=== PATIENT | female | born 1955 | race American Indian/Alaskan Native ===

== ENCOUNTER 2017-01-14 10:37 | Outpatient (CLI) | payer MEDICARE ==
--- NOTE | 2017-01-14 12:00 | XRay Report ---
RIGHT FOREARM: History: Right forearm pain, nodule. No relevant comparison. Fracture lines are evident through the midshaft of the right ulna. The fracture lines are well corticated. This has the appearance of a chronic ununited fracture in my opinion. The radius is within normal limits. The soft tissues are unremarkable. IMPRESSION: Probable chronic, ununited fracture of the ulnar shaft, correlate with history.
--- NOTE | 2017-01-14 13:15 | XRay Report ---
Cervical spine series: Neuralgia. Routine views demonstrate bony perforation at the C5-6 level with narrowing of the interspace. The C6-7 level is not well-visualized in the lateral projection but appears grossly preserved on the additional views. The remaining interspaces are unremarkable. The vertebral height is maintained at all levels and there is normal alignment. There is mild straightening of the cervical spine. The foramina appear to be patent bilaterally at all levels with only minimal compromise at C5-6. The bones appear adequately mineralized for stated age. Impressions: Degenerative bone and disc changes at C5-6.
== END 2017-01-14 10:38 | disposition home or self-care (01) ==
LOC: XRAY 10:37
PROVIDERS: ATTEND Family Medicine
DX: M47.892 Other spondylosis, cervical region (principal); M79.631 Pain in right forearm; I10 Essential (primary) hypertension; E78.00 Pure hypercholesterolemia, unspecified; E11.9 Type 2 diabetes mellitus without complications; E78.5 Hyperlipidemia, unspecified; D64.9 Anemia, unspecified
CPT/HCPCS: 72050

== ENCOUNTER 2018-11-28 10:54 | Emergency (ER) | payer MEDICARE ==
--- NOTE | 2018-11-28 11:17 | Emergency Department Report ---
Blank Doc - Documentation Documentation: This is a 63-year-old female that presents with blisters to legs and is concer carla about infection. This initial assessment diagnostic orders/clinical plan/treatment(s) is/are subject to change based on patient's health status, clinical progression and re- assessment by fellow clinical providers in the ED. Further treatment and workup at subsequent clinical providers discretion. Patient/guardians urged not to elope from ED s their condition may be serious if not clinically assessed and managed. Initial orders include: 1-Patient sent to [facility] for further evaluation and treatment 2-labs
[2018-11-28 11:18] VITALS: BP 127/66
[2018-11-28 12:07] LABS: Basophils # (Auto) 0.1 K/mm3 (0.0-0.1); Basophils % (Auto) 1.6 % (0.0-1.8); Eosinophils # (Auto) 0.4 K/mm3 (0.0-0.4); Eosinophils % (Auto) 5.3 % (0.0-4.3); Hematocrit 36.1 % (30.3-42.9); Hemoglobin 11.4 gm/dl (10.1-14.3); Lymphocytes # (Auto) 2.3 K/mm3 (1.2-5.4); Lymphocytes % (Auto) 33.8 % (13.4-35.0); Mean Corpuscular HGB Conc 32 % (30-34); Mean Corpuscular Volume 89 fl (79-97); Monocytes # (Auto) 0.6 K/mm3 (0.0-0.8); Platelet Count 287 K/mm3 (140-440); Red Blood Count 4.06 M/mm3 (3.65-5.03); Red Cell Distribution Width 15.9 % (13.2-15.2)
[2018-11-28 12:28] LABS: BUN/Creatinine Ratio 17; Blood Urea Nitrogen 19 mg/dL (7-17); Calcium 8.9 mg/dL (8.4-10.2); Hemolysis Index 28
--- NOTE | 2018-11-28 13:28 | Emergency Department Report ---
HPI - General Chief Complaint: Extremity Problem,Nontraumatic Time Seen by Provider: 11/28/18 11:16 - HPI HPI: 63-year-old female presents to the emergency department with a complaint of some blistering to the lower extremities. She mentions 1 towards the bottom of her left calf but she says was enlarged yesterday and fluid- filled. She popped it and drained it and now it has gone down flush with her skin. She says that this occurs intermittently. The patient is also concerned that she may have fevers at night as she gets some sweats and chills. However the patient also admits that her air conditioning unit has broken and it is very hot in her home. She has a past medical history of diabetes, GERD, hypertension, high cholesterol and a previous brain tumor. Her primary care physician is Dr. Megha Avilez. ED Past Medical Hx - Past Medical History Previous Medical History?: Yes Hx Hypertension: Yes (high cholesterol) Hx Diabetes: Yes Hx GERD: Yes Hx Liver Disease: No Hx Renal Disease: No Hx Arthritis: No Hx Kidney Stones: No Hx Asthma: No Hx COPD: No Hx Tuberculosis: No Hx HIV: No Additional medical history: high cholesterol; brain tumor - Surgical History Past Surgical History?: Yes Hx Breast Surgery: Yes Additional Surgical History: right mastectomy, brain tumor - Social History Smoking Status: Never Smoker Substance Use Type: None - Medications Home Medications: Home Medications Medication Instructions Recorded Confirmed Last Taken Type Oxybutynin [Ditropan] 5 mg PO BID 04/16/13 02/21/14 02/21/14 History Ranitidine HCl [Ranitidine] 150 mg PO BID 04/16/13 02/21/14 02/21/14 History Gabapentin 600 mg PO BID 05/16/13 02/21/14 02/21/14 History HYDROcodone/APAP 5-325 [[place] 1 each PO DAILY 05/16/13 02/21/14 Unknown History 5-325 mg TAB] Insulin NPH Hum/Reg Insulin Hm 35 units SQ AMHY 05/16/13 02/22/14 02/22/14 07:30 History [HumuLIN 70-30 Vial] 10UNITS Lisinopril 20 mg PO DAILY 05/16/13 02/22/14 02/22/14 07:30 History 1 Simvastatin 10 mg PO DAILY 05/16/13 02/21/14 02/21/14 History Carisoprodol 1 tab PO TID PRN 02/21/14 02/21/14 Unknown History Insulin NPH Hum/Reg Insulin Hm 30 units SC QHS 02/21/14 02/21/14 02/20/14 History [HumuLIN 70-30 Vial] ED Review of Systems ROS: Stated complaint: FEVER/RT LEG SORE/PAIN Other details as noted in HPI Comment: All other systems reviewed and negative Constitutional: chills, diaphoresis ENT: denies: ear pain, throat pain Respiratory: denies: cough, shortness of breath Cardiovascular: denies: chest pain, palpitations Musculoskeletal: denies: joint swelling, arthralgia, myalgia Skin: lesions. denies: change in color, pruritus Physical Exam - Physical Exam Vital Signs: Vital Signs 11/28/18 11:16 Temperature 98.4 F Pulse Rate 97 H Respiratory 18 Rate Blood Pressure 127/66 O2 Sat by Pulse 99 Oximetry Physical Exam: GENERAL: The patient is well-developed well-nourished. HENT: Normocephalic. Atraumatic. Patient has moist mucous membranes. EYES: Extraocular motions are intact. NECK: Supple. Trachea is midline. CHEST/LUNGS: Clear to auscultation. There is no respiratory distress noted. HEART/CARDIOVASCULAR: Regular. There is no tachycardia. There is no murmur. ABDOMEN: Abdomen is soft, nontender. Patient has normal bowel sounds. There is no abdominal distention. SKIN: Skin is warm and dry. Patient has an area to the left lower calf that looks like a deflated blister or cyst. NEURO: The patient is awake, alert, and oriented. The patient is cooperative. The patient has no focal neurologic deficits. The patient has normal speech. MUSCULOSKELETAL: There is no tenderness or deformity. There is no evidence of acute injury. ED Course Vital Signs 11/28/18 11:16 Temperature 98.4 F Pulse Rate 97 H Respiratory 18 Rate Blood Pressure 127/66 O2 Sat by Pulse 99 Oximetry ED Medical Decision Making - Lab Data Result diagrams: 11/28/18 11:41 11/28/18 11:41 - Medical Decision Making This patient presents to the emergency department after she developed some type of fluid filled blister or cyst to her left lower extremity. She has a history of this in the past and says that it keeps recurring. However more recently, the patient's air-conditioning has stopped working and the patient is sweating a lot. She also has some intermittent chills at night and was concerned that she may have some type of a fever, along with this blister, and wanted to make sure that she did not have an infection. She says that she popped it and had the clear fluid removed last night. At this point it does appear like some type of deflated blister or cyst. There is no surrounding erythema. No swelling, no warmth. No purulent discharge. The patient's vital signs were stable throughout her ED course including being afebrile. Some labs were ordered through triage that did not show any leukocytosis or any other acute abnormality. The patient appears safe for discharge home. She has follow-up with a primary care physician and has been given the wound care clinic, if necessary. She will return to the emergency Department with any worsening of her symptoms or any acute distress. - Differential Diagnosis cellulitis, abscess, cyst, dermatitis Critical Care Time: No Critical care attestation.: If time is entered above; I have spent that time in minutes in the direct care of this critically ill patient, excluding procedure time. ED Disposition Clinical Impression: Blister of leg Disposition: [id number] TO HOME OR SELFCARE Is pt being admited?: No Condition: Stable Instructions: Acute Wound Care (ED) Additional Instructions: Please follow-up with your primary care physician in the next few days. I am also giving you a referral for the local wound care clinic. Return to the emergency Department with any worsening of your symptoms or any acute distress. Referrals: MEGHA COMBS JR, MD [Primary Care Provider] - 2-3 Days [facility] [Outside] - 3-5 Days Time of Disposition: 13:29
== END 2018-11-28 13:39 | disposition home or self-care (01) ==
LOC: ED 10:54
DX: S80.822A Blister (nonthermal), left lower leg, initial encounter (principal); E11.9 Type 2 diabetes mellitus without complications; E78.00 Pure hypercholesterolemia, unspecified; I10 Essential (primary) hypertension; K21.9 Gastro-esophageal reflux disease without esophagitis; Z90.11 Acquired absence of right breast and nipple; Z79.4 Long term (current) use of insulin; Z79.899 Other long term (current) drug therapy; X19.XXXA Contact with other heat and hot substances, initial encounter; Y93.89 Activity, other specified; Y92.89 Other specified places as the place of occurrence of the external cause; Y99.8 Other external cause status
CPT/HCPCS: 36415; 80048; 85025; 99283